=== PATIENT | male | born 1985 ===

== ENCOUNTER 2024-12-18 00:12 | Emergency (ER) | payer OTHER ==
[2024-12-18] MEDS: Ketorolac 30 MG/ML SDV IM ONE (00:49)
== END 2024-12-18 01:05 | disposition home or self-care (01) ==
LOC: JD.ED 00:12
DX: K04.7 Periapical abscess without sinus (principal); K02.9 Dental caries, unspecified; F17.210 Nicotine dependence, cigarettes, uncomplicated; Z79.899 Other long term (current) drug therapy
CPT/HCPCS: 41800; 96372; 99282-25; A9270-GY; J1885; J2003